=== PATIENT | male | born 1990 | race African-American/Black ===

== ENCOUNTER 2024-04-13 11:31 | Emergency (ER) | payer SELFPAY ==
[2024-04-13 11:36] VITALS: BP 141/92; PULSE 102; O2SAT 97
[2024-04-13 11:42] VITALS: BP 141/42; PULSE 101; RESP 20; TEMP 36.6; O2SAT 97; BMI 23.7
--- NOTE | 2024-04-13 12:09 | [facility].EDGENADL ---
Discharge Plan Disposition Patient Disposition: Home, Self-Care Prescriptions Prescriptions: New prednisone 20 mg tablet 40 mg PO DAILY 5 Days Qty: 10 0RF No Action metronidazole 500 mg tablet 500 mg PO BID 7 Days Qty: 14 0RF Referrals Follow up/Referrals: Shaquille Teran MD [Primary Care Provider] - See instructions Activity Restrictions/Add. Instructions Additional Instructions/Restrictions: Call your family doctor to establish care for this visit to the emergency department and schedule follow-up within 48 hours to ensure improvement. If you have any worsening of your condition or any other concerning signs or symptoms, return to the emergency department or your primary care doctor for further evaluation. Prednisone every morning for the next 5 days with plenty of food and water. Talk to family doctor about physical therapy. Clinical Impressions Clinical Impression: Lumbar radiculopathy Stand Alone Forms Stand Alone Forms: Work/School Release Instructions Patient Instructions: DI for Low Back Pain Discharge ED Provider: David Felipe General Adult HPI General Chief complaint: Back Pain/Injury Stated complaint: severe lower back pain Time Seen by Provider: 04/13/24 11:43 Mode of Arrival: Ambulatory Source of Information: Patient Limitations: No Limitations Description of Symptoms (Recalled from ER Triage Doc. by RN): pt to ed c/o right back pain that radiates doen his left leg. pt states he has intermittently had this pain over the years but yesterday he exacerbated the pain while at work yesterday. pt denies relief despite NSAIDS at home; pt denies taking any today. pt reports mild nausea. History of Present Illness HPI narrative: 33-year-old male history of previous lumbar spine injury presenting with sciatic nerve pain. Patient states that for the last few years he has had intermittent pain, for the past few days he has had worsening pain and yesterday it was so severe he was largely unable to bend over and get himself dressed, among other things. Pain is moderate to severe when moving, mild at rest. Shooting, stabbing, starts in his lower back, radiates around to his right buttock, right hip, and into his posterior thigh. No bowel or bladder dysfunction or weakness, saddle anesthesia, or any other concerns. Please note that above description of symptoms, in this electronic medical record under categorization of recalled from ER triage doctor by RN are reflective of an initial nursing assessment, however, is not reflective of my full history and physical exam that was personally taken and clarified. Consequentially, this preceding description of symptoms, which may include the patient's categorized chief complaint in the EMR, do not reflect my personal clinical impression, and the ultimate description of history of present illness and patient stated complaints should be deferred to this section of the note. Unless stated otherwise or congruent with this section of the note, additional signs, symptoms, or incongruence should be interpreted as inaccurate with my clinical impression. Related Data Previous Rx's Medication Instructions Recorded metronidazole 500 mg tablet 500 mg PO BID 7 days #14 tabs 08/05/22 prednisone 20 mg tablet 40 mg (2 x 20 mg) PO DAILY 5 days 04/13/24 #10 tabs Allergies Allergy/AdvReac Type Severity Reaction Status Date / Time INGREDIENT: NO KNOWN - NO Allergy Unknown Uncoded 11/17/17 14:49 KNOWN DRUG ALLERGY [facility] Disclaimer: The information contained in this section may have been updated after the patient was seen, as this information can be updated by other users. Social History Smoking Status: Never smoker alcohol intake: never current occupational status: employed Travel in the last 8 weeks: None ROS Obtained: Yes All systems reviewed & no additional complaints except as documented Physical Exam General General appearance: alert and in no apparent distress Head Head exam: atraumatic and normocephalic Eye Eye exam: Present normal appearance, PERRL and EOMI ENT ENT exam: Present mucous membranes moist Neck Neck exam: Present normal inspection, full ROM and trachea midline Respiratory Respiratory exam: Absent respiratory distress, wheezes, stridor, accessory muscle use or prolonged expiratory phase Cardiovascular Cardiovascular exam: Present normal rhythm Abdominal Exam Abdominal exam: Present soft; Absent distention, tenderness, guarding, rebound or rigidity Extremities Exam Extremities exam: Absent edema Back Exam Back exam: Present tenderness and sciatic notch tenderness (R) Neurological Exam Neurological exam: Present alert, oriented X3, CN II-XII intact and normal gait; Absent motor sensory deficit Skin Skin exam: Present warm and dry; Absent diaphoresis or erythema Medical Decision Making Medical Records Medical records reviewed: Yes I reviewed the patient's medical records. Td Inquiry Pt receiving controlled substance: No Td was queried for this patient: No Vital Signs: 04/13/24 11:36 04/13/24 11:42 04/13/24 12:28 Temperature 98 F 98.0 F Temperature Source Oral Oral Pulse Rate 102 H 101 H Pulse Rate [Left Radial] 101 H Respiratory Rate 20 20 Blood Pressure 141/92 H 141/42 H Blood Pressure [Right Arm] 141/42 H Blood Pressure Mean [Right Arm] 75 Blood Pressure Source Automatic Cuff Blood Pressure Position Sitting 02 Sat by Pulse Oximetry 97 97 Oxygen Delivery Method Room Air Room Air Orders (Tests/Meds): ED MEDICATIONS Discontinued Medications Generic Name Dose Route Start Last Admin Trade Name Rolly PRN Reason Stop Dose Admin Prednisone 40 mg 04/13/24 12:11 04/13/24 12:21 Prednisone 20mg Tab PO 04/13/24 12:12 40 mg ONCE ONE Administration Medical Decision Narrative: 33-year-old male history of previous lumbar spine injury presenting with sciatic nerve pain. Patient states that for the last few years he has had intermittent pain, for the past few days he has had worsening pain and yesterday it was so severe he was largely unable to bend over and get himself dressed, among other things. Pain is moderate to severe when moving, mild at rest. Shooting, stabbing, starts in his lower back, radiates around to his right buttock, right hip, and into his posterior thigh. No bowel or bladder dysfunction or weakness, saddle anesthesia, or any other concerns. History obtained with patient. On physical exam, he does have midline lumbar spinal tenderness with more severe pain at the sciatic notch and right buttock. Exacerbation of pain with straight leg test. Neurologically intact including cerebellar, reflexes, motor and sensory. Differential includes lumbar radiculopathy, neuropathy, osteoarthritis, among others. Patient given 40 mg p.o. prednisone. Hematologic workup and spinal imaging CT and MRI was considered, but patient has no history of IV drug abuse, sepsis, fevers, chills, point tenderness, or other concerns acute spinal compressive pathology. Patient also has no red flag signs or symptoms. Because patient at baseline without signs or symptoms of clinical decompensation, deemed appropriate for discharge. Results were relayed to patient who voiced understanding and were agreeable to outpatient management and follow up. I discussed my clinical impression with patient and answered all questions. At this time, the evidence for any other entities in the differential is insufficient to warrant any further testing or ED observation. This was explained as well. Advisory was given that persistent or worsening symptoms require further evaluation. I confirmed the understanding of this discussion. Critical Care Critical Care Time Critical Care Time: No
[2024-04-13] MEDS: predniSONE 20MG TAB 40 MG PO (12:21)
[2024-04-13 12:28] VITALS: BP 141/42; PULSE 101; RESP 20; TEMP 36.7; O2SAT 97
== END 2024-04-13 12:29 | disposition home or self-care (01) ==
PROVIDERS: Emergency Provider Emergency Medicine; PCP Family Medicine
DX: M54.16 Radiculopathy, lumbar region (principal)
CPT/HCPCS: 99283